=== PATIENT | female | born 1970 | race Caucasian/White ===

== ENCOUNTER 2023-09-04 16:08 | Emergency (ER) | payer OTHER, SELFPAY ==
[2023-09-04 16:36] VITALS: BP 186/100
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
== END 2023-09-04 18:11 | disposition home or self-care (01) ==
LOC: EMR 16:08
PROVIDERS: EMERGENCY PHYSICIAN Emergency Medicine; FAMILY PHYSICIAN Family Medicine
DX: S93.402A Sprain of unspecified ligament of left ankle, initial encounter (principal); V49.49XA Driver injured in collision with other motor vehicles in traffic accident, initial encounter; Y92.410 Unspecified street and highway as the place of occurrence of the external cause; I12.9 Hypertensive chronic kidney disease with stage 1 through stage 4 chronic kidney disease, or unspecified chronic kidney disease; N18.9 Chronic kidney disease, unspecified; E66.9 Obesity, unspecified; Z87.442 Personal history of urinary calculi
CPT/HCPCS: 99283; 73610

== ENCOUNTER → 2023-09-23 13:18 | Outpatient (REF) | payer OTHER, SELFPAY | LOC: HWRAD 13:18 | PROVIDERS: ATTENDING PHYSICIAN Physician Assistant Medical | DX: M25.532 Pain in left wrist (principal) | CPT/HCPCS: 73110; 73130 ==

== ENCOUNTER 2023-12-14 13:41 | Emergency (ER) | payer OTHER, SELFPAY ==
[2023-12-14 13:50] VITALS: BP 160/95
--- NOTE | 2023-12-14 14:08 | EDRN ---
Preet ROGERS in room w/pt.
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
[2023-12-14 14:26] VITALS: BMI 40.1
[2023-12-14 14:29] VITALS: BP 151/85
[2023-12-14] MEDS: NEURONTIN 300 MG PO (15:14)
== END 2023-12-14 15:24 | disposition home or self-care (01) ==
LOC: EMR 13:41
PROVIDERS: EMERGENCY PHYSICIAN Emergency Medicine; FAMILY PHYSICIAN Physician Assistant Medical
DX: G57.92 Unspecified mononeuropathy of left lower limb (principal); I12.9 Hypertensive chronic kidney disease with stage 1 through stage 4 chronic kidney disease, or unspecified chronic kidney disease; N18.9 Chronic kidney disease, unspecified; Z86.718 Personal history of other venous thrombosis and embolism
CPT/HCPCS: 99284; 93971

== ENCOUNTER → 2024-01-09 07:45 | Outpatient (REF) | payer OTHER, SELFPAY | LOC: EMG 07:45 | PROVIDERS: ATTENDING PHYSICIAN Physician Assistant Medical | DX: M79.2 Neuralgia and neuritis, unspecified (principal) | CPT/HCPCS: 95886; 95911 ==

== ENCOUNTER 2024-06-18 17:19 | Emergency (ER) | payer OTHER, SELFPAY ==
[2024-06-18 17:21] VITALS: BP 103/80
--- NOTE | 2024-06-18 18:33 | ED.GENMED ---
History of Present Illness
General
Chief Complaint: Swelling
Time Seen by Provider: 06/18/24 18:07
History of Present Illness
History of Present Illness:
53-year-old female history of hypertension, CKD, superficial blood clots in lower extremities not currently on anticoagulation presenting with pain and erythema to left inner thigh starting 06/14. Patient states she was seen by her PCP on 06/15 who
prescribed Keflex and ordered outpatient LLE ultrasound. Patient states that she had ultrasound today which showed thrombus of left greater saphenous vein, no DVT in femoral or calf systems. Patient reports no improvement in symptoms with Keflex.
Patient denies fever, chest pain, shortness of breath. Patient states that she had a blood clot in her leg 10 to 15 years ago, was treated with anticoagulation but stopped partially due to kidney disease.
Past History
Past History
ED Past Medical History: HTN, Other (CKD) and Other (Kidney stones, obesity, fibroids)
ED Past Surgical History: Urological (Bilateral kidney stones with lithotripsy and stent placement)
Social History
Tobacco: Non-smoker
Alcohol: None
Drug: None
Personal:
Living: with family
Employment: Employed
Phy Exam
Physical Exam
Physical Exam:
General: Alert, no acute distress
Head: NCAT
Eyes: clear conjunctiva
Neck: supple
Cardiac: regular rate and rhythm, no murmur
Lungs: clear to auscultation bilaterally. No wheezes, rales, or rhonchi. Speaking full unlabored sentences. No respiratory distress.
Abdomen: soft, nondistended nontender. No rebound or guarding.
MSK: no lower extremity edema bilaterally. No deformity
Skin: warm, dry. Erythema and tenderness palpation to left inner thigh. Palpable cord to the left medial thigh. 2+ left DP pulse.
Neuro: Alert and oriented x3. no focal deficits
Scores
Heart Failure Risk
Heart Failure Risk Score: Not Applicable
Course
Orders/Labs/Results
Orders:
Orders
06/18/24 18:49
BMP [Basic Metabolic Panel] Urgent
CBC/With Diff [Complete Blood Count/With Diff] Urgent
Protime/PTT Urgent
06/18/24 19:14
Tramadol HCl [Ultram] 50 mg PO NOW STA
06/18/24 20:18
Apixaban [Eliquis] 10 mg PO ONCE STA
Abnormal Lab Results
06/18/24
18:49
RBC 4.12 L 10^6/uL
(4.20-5.40)
Hct 36.8 L %
(37.0-47.0)
RDW 15.1 H %
(11.5-14.5)
Plt Count 127 L 10^3/uL
(130-400)
MPV 11.5 H fL
(7.4-10.4)
PT 14.8 H Sec
(11.4-14.6)
Potassium 3.4 L mmol/L
(3.5-5.1)
BUN 62 H mg/dl
(7-17)
Creatinine 2.2 H mg/dL
(0.6-1.0)
Glucose 208 H mg/dl
(70-99)
06/18/24 18:49
06/18/24 18:49
Vital Signs
Initial and Last Documented VS:
Initial Vital Signs
Temp Pulse Resp BP Pulse Ox
98.3 F 90 18 103/80 99
06/18/24 17:21 06/18/24 17:21 06/18/24 17:21 06/18/24 17:21 06/18/24 17:21
Last Documented Vital Signs
Temp Pulse Resp BP Pulse Ox
98.3 F 85 18 152/78 99
06/18/24 17:21 06/18/24 20:25 06/18/24 20:25 06/18/24 20:25 06/18/24 20:25
MDM/Problems Addressed
MDM/Problems Addressed:
Reviewed outpatient ultrasound completed today that shows occlusive thrombus of left greater saphenous vein, no DVT. On chart review, patient was previously admitted to the hospital and 2011 for venous thrombus of left greater saphenous vein.
Patient was started on Lovenox and Coumadin at that time. Will check labs, start on anticoagulation given extent of thrombus. Advised to use warm compresses. Lower suspicion for cellulitis.
Labs reviewed, shows baseline CKD. Thrombocytopenia at 127. Otherwise hemoglobin and WBC wnl.
Discussed with patient and family at bedside. Will start on eliquis. Advised to use warm compresses, continue tramadol as needed for pain, follow up with hematology. Discussed return precautions. Pt and family expressed verbal understanding.
*Critical Care Note
Total Time (30-74mins, 75-104mins- exclusive of procedures): Not Applicable
ED Attending Note
-
Portions of this chart may have been created with voice recognition software.� Occasional wrong word or��sound alike� substitutions may have occurred due to the inherent limitations of voice recognition software.
Discharge Plan
Departure
Patient Disposition: Home (Routine Discharge)
Date of Disposition: 06/18/24
Time of Disposition: 20:19
Patient with high blood pressure during this ER visit?: No
Discharge Problem:
Acute superficial venous thrombosis of left lower extremity
Instructions: Apixaban, Superficial vein phlebitis and thrombosis
Prescriptions:
New
Eliquis DVT-PE Treat 30D Start 5 mg (74 tabs) tablets,dose pack
5 mg PO BID Qty: 74 0RF
Rx Instructions:
Take 10mg (2 pills) twice daily for 7 days followed by 5mg (1 pill) twice daily
No Action
ferrous sulfate [FeroSul] 325 MG tablet
325 mg PO DAILY
metoprolol tartrate 50 MG tablet
50 mg PO DAILY
cyanocobalamin (vitamin B-12) 1,000 MCG tablet
1,000 mcg PO DAILY Qty: 30 0RF
sulfamethoxazole-trimethoprim 1 TABLET tablet
1 tab PO BID Qty: 14 0RF
fluconazole 200 MG tablet
200 mg PO DAILY Qty: 7 0RF
cephalexin [Keflex] 500 MG capsule
500 mg PO BID Qty: 14 0RF
gabapentin 300 mg capsule
300 mg PO BID Qty: 20 0RF
Referrals:
Batsheva Fung PA-C [Family Provider] -
Matt Guerin MD [Active] -
Activity Restrictions/Additional Instructions:
Take eliquis 10mg (2 pills) twice daily for 7 days followed by 5mg (1 pill) twice daily
Follow up with hematology
Use warm compresses
Take tramadol as prescribed for pain
Return to the emergency department for chest pain, shortness of breath, if you hit your head, black/bloody stools or new/worsening symptoms
Interventions
Interventions:
*Risk Screen - Suicide Last Done: 06/18/24 17:21
*General Assessment Last Done: 06/18/24 17:21
*Neglect/Abuse Screening Last Done: 06/18/24 17:21
*ED- Fall Risk Assessment Last Done: 06/18/24 20:43
*ED COVID-19 Vaccine History Last Done: 06/18/24 17:21
*Nursing Disposition Last Done: 06/18/24 20:43
ED- Cardiac Assessment Last Done: 06/18/24 18:55
ED- Pulmonary Assessment Last Done: 06/18/24 18:55
ED-Skin Assessment Last Done: 06/18/24 18:55
Discharge Date and Time
Discharge Date/Time: 06/18/24 20:43
Print Language: [email or web address]
[2024-06-18 19:09] LABS: INR 1.12; PT 14.8 Sec (11.4-14.6)
[2024-06-18 19:10] LABS: APTT 23.9 Sec (23.4-35.0)
[2024-06-18 19:14] LABS: Blood Urea Nitrogen 62 mg/dl (7-17); Calcium 8.9 mg/dl (8.4-10.2); Carbon Dioxide 24 mmol/L (22-30); Chloride 102 mmol/L (98-107); Glucose 208 mg/dl (70-99); Potassium 3.4 mmol/L (3.5-5.1); Sodium 136 mmol/L (135-145); eGFR 25.99
[2024-06-18] MEDS: ULTRAM 50 MG PO (19:15)
[2024-06-18 19:20] LABS: % Basophils 0.3 % (0-2); % Eosinophils 3.3 % (0-6); % Immature Granulocytes 0.4 % (0-0.5); % Lymphocytes 29.8 % (20.5-51.1); % Monocytes 7.4 % (1.7-9.3); % Neutrophils 58.8 % (42.2-75.2); Absolute Eosinophils 0.3 10^3/uL (0-0.7); Absolute Lymphocytes 2.3 10^3/uL (1.2-3.4); Absolute Monocytes 0.6 10^3/uL (0.1-0.6); Absolute Neutrophils 4.6 10^3/uL (1.4-6.5); Hematocrit 36.8 % (37.0-47.0); Hemoglobin 12.4 g/dL (12.0-16.0); Mean Corp Hgb Conc. 33.7 g/dL (33.0-37.0); Mean Corpuscular Hgb 30.1 pg (27.0-31.0); Mean Corpuscular Volume 89.3 fL (81.0-99.0); Mean Platelet Volume 11.5 fL (7.4-10.4); Nucleated Red Blood Cells % 0 %; Platelet Count 127 10^3/uL (130-400); Red Blood Cell Count 4.12 10^6/uL (4.20-5.40); Red Cell Dist. Width 15.1 % (11.5-14.5); White Blood Cell Count 7.8 10^3/uL (4.8-10.8)
[2024-06-18] MEDS: ELIQUIS 10 MG PO (20:22)
[2024-06-18 20:25] VITALS: BP 152/78
== END 2024-06-18 20:43 | disposition home or self-care (01) ==
LOC: EMR 17:19
PROVIDERS: EMERGENCY PHYSICIAN Emergency Medicine; FAMILY PHYSICIAN Physician Assistant Medical
DX: I82.812 Embolism and thrombosis of superficial veins of left lower extremity (principal); I12.9 Hypertensive chronic kidney disease with stage 1 through stage 4 chronic kidney disease, or unspecified chronic kidney disease; N18.9 Chronic kidney disease, unspecified; Z86.718 Personal history of other venous thrombosis and embolism
CPT/HCPCS: 99283; 80048; 85025; 85610; 85730